=== PATIENT | female | born 1935 | race Caucasian/White ===

== ENCOUNTER 2016-08-06 11:48 | Inpatient (IN) | payer OTHER ==
[~2016-08-06] VITALS: Ht 162.6 cm; Wt 82.1 kg
[2016-08-06] MEDS ORDERED: VITAMIN D2000 UNI1 PO (12:09)
[2016-08-06] MEDS ORDERED: LEVOTHYROXINE50 MCG PO (12:09)
[2016-08-06 12:43] LABS: HEMATOCRIT 39.3 % (36.0-46.0); MCH 31.3 PG (29.0-34.0); MCHC 33.1 G/DL (30.0-36.0); MCV 94.7 FL (83-99); MEAN PLAT.VOLUME 12.4 uM^3 (9.5-12.4); PLATELET COUNT 167 K/uL (156-360); RBC DIS.WIDTH-CV 13.4 % (11.8-14.6); RBC DIS.WIDTH-SD 46.4 % (39-53); RED BLOOD COUNT 4.15 M/uL (3.80-5.20); WHITE BLOOD COUNT 7.9 K/uL (4.1-10.2)
[2016-08-06 12:56] LABS: PROTHROMBIN TIME 9.9 (9.2-11.2); PTT 30.1 (25-32)
[2016-08-06 13:00] LABS: TROP-I INTERPRETATION NEGATIVE; TROPONIN-I 0.02 ng/mL (0.0-0.30)
[2016-08-06] MEDS ORDERED: MUCINEX600 MG PO (13:11)
[2016-08-06] MEDS ORDERED: ADVIL COLD &1 TABLET PO (13:12)
[2016-08-06 13:14] LABS: ALKALINE PHOSPHATASE 70 IU/L (3-129); ANION GAP 11 MEQ/L (2-14); CHLORIDE 106 MEQ/L (99-109); GFR ESTIMATE (CALCULATED) > 59 mL/min/; GLUCOSE 123 mg/dL (70-99); SAMPLE HEMOLYSIS CHECK 0; SAMPLE ICTERIC CHECK 0; SAMPLE LIPEMIA CHECK 0; SODIUM 143 MEQ/L (136-147); TOTAL BILIRUBIN 0.6 MG/DL (0.0-1.0); UREA NITROGEN (BUN) 18 mg/dL (9-23)
[2016-08-06 15:01] VITALS: BP 153/79
[2016-08-06 15:39] LABS: ADD MIUA? YES; BILIRUBIN NEGATIVE; BLOOD SMALL; COLOR COLORLESS ((YELLOW)); GLUCOSE (STRIP) NEGATIVE; KETONES 5; LEUKOCYTES NEGATIVE; NITRITE NEGATIVE; PROTEIN (STRIP) 30; SPECIFIC GRAVITY 1.009 (1.000-1.030); UROBILINOGEN 0.2 MG/DL (0.2-1.0)
[2016-08-06 15:57] LABS: BACTERIA NONE SEEN /HPF; EPITHELIAL CELLS RARE /HPF; MUCUS NONE SEEN /LPF; UCUL ADDED? NO; WHITE BLOOD CELLS 0-5 /HPF (0-5)
[2016-08-06 16:14] LABS: POINT-OF-CARE METER ID UU13113698
[2016-08-06 19:09] VITALS: BP 168/74
[2016-08-06 19:58] LABS: TROP-I INTERPRETATION NEGATIVE; TROPONIN-I 0.06 ng/mL (0.0-0.30)
[2016-08-06 20:16] LABS: Estimated Average Glucose 140 mg/dL (70-123); HEMOGLOBIN A1c (GLYCOHEMOGLOB) 6.5 % HGB (Below 5.7)
[2016-08-06 23:25] VITALS: BP 193/83
[2016-08-07 01:14] LABS: TROP-I INTERPRETATION NEGATIVE; TROPONIN-I 0.07 ng/mL (0.0-0.30)
[2016-08-07 03:58] VITALS: BP 197/84
[2016-08-07 06:59] LABS: HEMATOCRIT 38.6 % (36.0-46.0); MCH 29.3 PG (29.0-34.0); MCHC 31.1 G/DL (30.0-36.0); MCV 94.4 FL (83-99); MEAN PLAT.VOLUME 11.3 uM^3 (9.5-12.4); PLATELET COUNT 161 K/uL (156-360); RBC DIS.WIDTH-CV 13.5 % (11.8-14.6); RBC DIS.WIDTH-SD 46.8 % (39-53); RED BLOOD COUNT 4.09 M/uL (3.80-5.20); WHITE BLOOD COUNT 7.2 K/uL (4.1-10.2)
[2016-08-07 07:29] LABS: ALKALINE PHOSPHATASE 62 IU/L (3-129); ANION GAP 6 MEQ/L (2-14); CHLORIDE 107 MEQ/L (99-109); GFR ESTIMATE (CALCULATED) > 59 mL/min/; GLUCOSE 128 mg/dL (70-99); HDL CHOLESTEROL 43 MG/DL (Desirable>=50); LDL CHOLESTEROL 136 mg/dL (Desirable<100); NON-HDL CHOLESTEROL 172 mg/dL (Desirable<160); POTASSIUM 3.8 MEQ/L (3.7-5.4); SAMPLE HEMOLYSIS CHECK 0; SAMPLE ICTERIC CHECK 0; SAMPLE LIPEMIA CHECK 0; SODIUM 142 MEQ/L (136-147); TOTAL CHOLESTEROL 215 mg/dL (Desirable<200); TRIGLYCERIDES 180 MG/DL (Normal: <150); UREA NITROGEN (BUN) 18 mg/dL (9-23)
[2016-08-07 07:32] LABS: TOTAL BILIRUBIN 0.9 MG/DL (0.0-1.0)
[2016-08-07 07:48] LABS: POINT-OF-CARE METER ID UU14174216
[2016-08-07 08:10] VITALS: BP 210/78
[2016-08-07 10:14] VITALS: BP 182/74
[2016-08-07 11:09] LABS: POINT-OF-CARE METER ID UU14174216
[2016-08-07 11:15] VITALS: BP 164/78
[2016-08-07] MEDS ORDERED: XARELTO20 MG PO (14:27)
[2016-08-07] MEDS ORDERED: LOSARTAN POTASS50 MG PO (14:27)
== END 2016-08-07 20:57 | disposition home or self-care (01) | DRG 309 ==
LOC: EME 11:48 → EDOF 13:21 → 4EAST 14:45
PROVIDERS: Internal Medicine; Physician Assistant
DX: I48.0 Paroxysmal atrial fibrillation (principal); I16.1 Hypertensive emergency; E11.9 Type 2 diabetes mellitus without complications; E03.9 Hypothyroidism, unspecified; E66.9 Obesity, unspecified; Z68.31 Body mass index [BMI] 31.0-31.9, adult; I27.2 Other secondary pulmonary hypertension
CPT/HCPCS: 71020; 80053; 80061; 81003; 82948; 83036; 84443; 84481; 84484; 85027; 85610; 85730; 93005; 93306; 99281; 99285; J1160; J1650; J1815

== ENCOUNTER 2017-05-09 14:18 | Inpatient (IN) | payer OTHER ==
[~2017-05-09] VITALS: Ht 162.6 cm; Wt 91.7 kg
[~2017-05-09 14:18] MED LIST: ADVIL COLD &1 TABLET PO; LEVOTHYROXINE50 MCG PO; LOSARTAN POTASS50 MG PO; MUCINEX600 MG PO; VITAMIN D2000 UNI1 PO; XARELTO20 MG PO
[2017-05-09 15:11] LABS: HEMATOCRIT 35.8 % (36.0-46.0); MCH 28.9 PG (29.0-34.0); MCHC 31.3 G/DL (30.0-36.0); MCV 92.3 FL (83-99); MEAN PLAT.VOLUME 11.7 uM^3 (9.5-12.4); PLATELET COUNT 203 K/uL (156-360); RBC DIS.WIDTH-CV 14.1 % (11.8-14.6); RBC DIS.WIDTH-SD 47.7 % (39-53); RED BLOOD COUNT 3.88 M/uL (3.80-5.20); WHITE BLOOD COUNT 10.6 K/uL (4.1-10.2)
[2017-05-09 15:19] LABS: CHLORIDE 107 mEq/L (99-109); POTASSIUM 3.8 mEq/L (3.7-5.4); SODIUM 144 mEq/L (136-147)
[2017-05-09 15:21] LABS: GLUCOSE 177 mg/dL (70-99)
[2017-05-09 15:23] LABS: ANION GAP 12 MEQ/L (2-14); TOTAL BILIRUBIN 0.9 mg/dL (0.0-1.0)
[2017-05-09 15:25] LABS: ALKALINE PHOSPHATASE 82 IU/L (3-129); GFR ESTIMATE (CALCULATED) 33 mL/min/
[2017-05-09 15:26] LABS: UREA NITROGEN (BUN) 28 mg/dL (9-23)
[2017-05-09 15:34] LABS: TROP-I INTERPRETATION NEGATIVE; TROPONIN-I 0.01 ng/mL (0.0-0.30)
[2017-05-09] MEDS ORDERED: FUROSEMIDE20 MG PO (16:12)
[2017-05-09] MEDS ORDERED: ATORVASTATIN CA20 MG PO (16:12)
[2017-05-09] MEDS ORDERED: ADVIL200 MG PO (16:12)
[2017-05-09] MEDS ORDERED: AMARYL1 MG PO (16:12)
[2017-05-09] MEDS ORDERED: CARDIZEM CD,CA120 MG PO (16:12)
[2017-05-09] MEDS ORDERED: AMLODIPINE BESY10 MG PO (16:12)
[2017-05-09] MEDS ORDERED: ATENOLOL50 MG PO (16:13)
[2017-05-09 21:57] VITALS: BP 127/60
[2017-05-09 22:17] LABS: TROP-I INTERPRETATION NEGATIVE; TROPONIN-I < 0.01 ng/mL (0.0-0.30)
[2017-05-09 23:09] VITALS: BP 138/62
[2017-05-10 04:19] LABS: HEMATOCRIT 31.1 % (36.0-46.0); MCH 28.7 PG (29.0-34.0); MCHC 31.5 G/DL (30.0-36.0); MCV 91.2 FL (83-99); MEAN PLAT.VOLUME 11.1 uM^3 (9.5-12.4); PLATELET COUNT 167 K/uL (156-360); RBC DIS.WIDTH-CV 14.3 % (11.8-14.6); RBC DIS.WIDTH-SD 47.8 % (39-53); RED BLOOD COUNT 3.41 M/uL (3.80-5.20); WHITE BLOOD COUNT 8.8 K/uL (4.1-10.2)
[2017-05-10 04:30] LABS: CHLORIDE 110 mEq/L (99-109); POTASSIUM 3.5 mEq/L (3.7-5.4); SODIUM 143 mEq/L (136-147)
[2017-05-10 04:31] LABS: GLUCOSE 144 mg/dL (70-99)
[2017-05-10 04:33] LABS: ANION GAP 9 MEQ/L (2-14)
[2017-05-10 04:35] LABS: GFR ESTIMATE (CALCULATED) 39 mL/min/
[2017-05-10 04:36] LABS: UREA NITROGEN (BUN) 29 mg/dL (9-23)
[2017-05-10 04:46] LABS: TROP-I INTERPRETATION NEGATIVE; TROPONIN-I < 0.01 ng/mL (0.0-0.30)
[2017-05-10 05:27] VITALS: BP 116/59
[2017-05-10 09:32] LABS: INTER. NORMALIZED RATIO 1.9; PROTHROMBIN TIME 21.4 SEC (10.2-12.9)
[2017-05-10 09:35] LABS: PTT 32.1 SEC (25-37)
[2017-05-10 10:11] VITALS: BP 115/69
[2017-05-10 12:26] VITALS: BP 122/65
[2017-05-10 15:40] VITALS: BP 137/58
[2017-05-10 17:53] LABS: TYPE OF FLUID PLEURAL
[2017-05-10 18:24] LABS: BODY FLUID LDH 62 IU/L
[2017-05-10 18:36] LABS: BODY FLUID PROTEIN < 3.0 G/DL
[2017-05-10 18:45] LABS: BODY FLUID EOSINOPHILS 0 % (0-25); BODY FLUID RBC'S 1000 /MM^3 (0-100); BODY FLUID WBC'S 266 /MM^3 (0-500); MONONUCLEAR WBC'S 86 %; POLYNUCLEAR WBC'S 14 % (0-25)
[2017-05-10 19:52] VITALS: BP 122/66
[2017-05-10 23:32] VITALS: BP 121/65
[2017-05-11 03:38] VITALS: BP 136/74
[2017-05-11 06:22] LABS: ANION GAP 10 MEQ/L (2-14); CHLORIDE 107 MEQ/L (99-109); GFR ESTIMATE (CALCULATED) 33 mL/min/; GLUCOSE 153 mg/dL (70-99); POTASSIUM 3.9 MEQ/L (3.7-5.4); SAMPLE HEMOLYSIS CHECK 0; SAMPLE ICTERIC CHECK 0; SAMPLE LIPEMIA CHECK 0; SODIUM 144 MEQ/L (136-147); UREA NITROGEN (BUN) 42 mg/dL (9-23)
[2017-05-11 08:20] VITALS: BP 135/81
[2017-05-11 10:29] LABS: MCH 28.3 PG (29.0-34.0); MCHC 30.9 G/DL (30.0-36.0); MCV 91.4 FL (83-99); MEAN PLAT.VOLUME 11.5 uM^3 (9.5-12.4); PLATELET COUNT 194 K/uL (156-360); RBC DIS.WIDTH-CV 14.4 % (11.8-14.6); WHITE BLOOD COUNT 14.7 K/uL (4.1-10.2)
[2017-05-11 11:37] VITALS: BP 119/64
[2017-05-11 11:58] LABS: POINT-OF-CARE METER ID UU14174216
[2017-05-11 16:32] LABS: POINT-OF-CARE METER ID UU14174216
[2017-05-11 16:50] VITALS: BP 133/63
[2017-05-11 19:14] VITALS: BP 133/64
[2017-05-11 21:19] LABS: POINT-OF-CARE METER ID UU14174216
[2017-05-11 23:54] VITALS: BP 132/71
[2017-05-12 04:21] VITALS: BP 118/75
[2017-05-12 05:45] LABS: EOSINOPHIL (%) 0 % (0-5); HEMATOCRIT 29.5 % (36.0-46.0); IMMATURE GRANULOCYTE (%) 0.5 % (0.0-0.7); IMMATURE GRANULOCYTE COUNT 0.1 K/uL; LYMPHOCYTE COUNT 0.5 K/uL (1.0-2.8); MCH 28.4 PG (29.0-34.0); MCHC 31.5 G/DL (30.0-36.0); MCV 90.2 FL (83-99); MEAN PLAT.VOLUME 11.5 uM^3 (9.5-12.4); MONOCYTE (%) 5.5 % (3-12); MONOCYTE COUNT 0.7 K/uL (0-0.8); NEUTROPHIL (%) 89.8 % (45-76); PLATELET COUNT 169 K/uL (156-360); RBC DIS.WIDTH-CV 14.3 % (11.8-14.6); RBC DIS.WIDTH-SD 47.4 % (39-53); RED BLOOD COUNT 3.27 M/uL (3.80-5.20); WHITE BLOOD COUNT 13.3 K/uL (4.1-10.2)
[2017-05-12 06:11] LABS: ANION GAP 11 MEQ/L (2-14); CHLORIDE 105 MEQ/L (99-109); GFR ESTIMATE (CALCULATED) 29 mL/min/; GLUCOSE 151 mg/dL (70-99); SAMPLE HEMOLYSIS CHECK 0; SAMPLE ICTERIC CHECK 0; SAMPLE LIPEMIA CHECK 0; SODIUM 142 MEQ/L (136-147); UREA NITROGEN (BUN) 49 mg/dL (9-23)
[2017-05-12 08:07] LABS: POINT-OF-CARE METER ID UU13113698
[2017-05-12 09:00] VITALS: BP 131/71
[2017-05-12 12:14] LABS: POINT-OF-CARE METER ID UU13113819; POINT-OF-CARE USER ID ADMSLT55
[2017-05-12 13:11] VITALS: BP 142/63
[2017-05-12 16:00] VITALS: BP 121/58
[2017-05-12 17:02] LABS: POINT-OF-CARE METER ID UU13113781
[2017-05-12 19:24] VITALS: BP 134/74
[2017-05-12 21:48] LABS: POINT-OF-CARE METER ID UU14314088
[2017-05-13] VITALS (7 sets, daily range): BP systolic 120–177; BP diastolic 58–91
[2017-05-13 04:59] LABS: CHLORIDE 105 mEq/L (99-109); EOSINOPHIL (%) 0 % (0-5); HEMATOCRIT 30.6 % (36.0-46.0); IMMATURE GRANULOCYTE (%) 0.6 % (0.0-0.7); IMMATURE GRANULOCYTE COUNT 0.1 K/uL; INSTRUMENT ABS NEUTROPHIL CT 10.7 K/uL; LYMPHOCYTE COUNT 0.6 K/uL (1.0-2.8); MCH 28.2 PG (29.0-34.0); MCHC 31.4 G/DL (30.0-36.0); MCV 89.7 FL (83-99); MEAN PLAT.VOLUME 11.8 uM^3 (9.5-12.4); MONOCYTE (%) 8.5 % (3-12); MONOCYTE COUNT 1.1 K/uL (0-0.8); NEUTROPHIL (%) 85.9 % (45-76); NEUTROPHIL COUNT 10.7 K/uL (1.8-6.4); PLATELET COUNT 161 K/uL (156-360); POTASSIUM 3.7 mEq/L (3.7-5.4); RBC DIS.WIDTH-CV 14.2 % (11.8-14.6); RBC DIS.WIDTH-SD 46.5 % (39-53); RED BLOOD COUNT 3.41 M/uL (3.80-5.20); SODIUM 140 mEq/L (136-147); WHITE BLOOD COUNT 12.4 K/uL (4.1-10.2)
[2017-05-13 05:02] LABS: ANION GAP 9 MEQ/L (2-14)
[2017-05-13 05:04] LABS: GFR ESTIMATE (CALCULATED) 31 mL/min/
[2017-05-13 05:05] LABS: UREA NITROGEN (BUN) 50 mg/dL (9-23)
[2017-05-13 05:07] LABS: GLUCOSE 102 mg/dL (70-99)
[2017-05-13 08:13] LABS: POINT-OF-CARE METER ID UU14314088
[2017-05-13 11:24] LABS: POINT-OF-CARE METER ID UU14174216
[2017-05-13 16:41] LABS: POINT-OF-CARE METER ID UU14174216
[2017-05-13 20:49] LABS: POINT-OF-CARE METER ID UU14314088
[2017-05-14] VITALS (9 sets, daily range): BP systolic 110–142; BP diastolic 56–71
[2017-05-14 05:30] LABS: EOSINOPHIL (%) 0 % (0-5); HEMATOCRIT 30.6 % (36.0-46.0); IMMATURE GRANULOCYTE (%) 0.6 % (0.0-0.7); IMMATURE GRANULOCYTE COUNT 0.1 K/uL; INSTRUMENT ABS NEUTROPHIL CT 9.4 K/uL; LYMPHOCYTE COUNT 0.6 K/uL (1.0-2.8); MCH 28.1 PG (29.0-34.0); MCHC 31.4 G/DL (30.0-36.0); MCV 89.5 FL (83-99); MEAN PLAT.VOLUME 11.6 uM^3 (9.5-12.4); MONOCYTE (%) 9.9 % (3-12); MONOCYTE COUNT 1.1 K/uL (0-0.8); NEUTROPHIL (%) 83.7 % (45-76); NEUTROPHIL COUNT 9.4 K/uL (1.8-6.4); PLATELET COUNT 160 K/uL (156-360); RBC DIS.WIDTH-CV 14.2 % (11.8-14.6); RBC DIS.WIDTH-SD 46.3 % (39-53); RED BLOOD COUNT 3.42 M/uL (3.80-5.20); WHITE BLOOD COUNT 11.3 K/uL (4.1-10.2)
[2017-05-14 05:55] LABS: ANION GAP 6 MEQ/L (2-14); CHLORIDE 106 MEQ/L (99-109); GFR ESTIMATE (CALCULATED) 42 mL/min/; GLUCOSE 71 mg/dL (70-99); POTASSIUM 3.8 MEQ/L (3.7-5.4); SAMPLE HEMOLYSIS CHECK 0; SAMPLE ICTERIC CHECK 0; SAMPLE LIPEMIA CHECK 0; SODIUM 143 MEQ/L (136-147); UREA NITROGEN (BUN) 38 mg/dL (9-23)
[2017-05-14 07:44] LABS: POINT-OF-CARE METER ID UU14174216; POINT-OF-CARE USER ID NUTSLF44
[2017-05-14 11:36] LABS: POINT-OF-CARE METER ID UU14174216; POINT-OF-CARE USER ID NUTSLF44
[2017-05-14 15:17] LABS: POC NON-PRINT COM 1 ND
[2017-05-14 15:58] LABS: MAGNESIUM 2.4 mg/dl (1.3-2.7)
[2017-05-14 16:42] LABS: POINT-OF-CARE METER ID UU14174216; POINT-OF-CARE USER ID NUTSLF44
[2017-05-14 20:42] LABS: POINT-OF-CARE METER ID UU13113698
[2017-05-15 04:00] VITALS: BP 122/67
[2017-05-15 07:35] LABS: POINT-OF-CARE METER ID UU13113698
[2017-05-15 07:45] VITALS: BP 143/60
[2017-05-15 09:11] LABS: HEMATOCRIT 34.7 % (36.0-46.0); MCHC 31.1 G/DL (30.0-36.0); MCV 89.9 FL (83-99); RBC DIS.WIDTH-SD 46.4 % (39-53); RED BLOOD COUNT 3.86 M/uL (3.80-5.20)
[2017-05-15 09:29] LABS: ANION GAP 8 MEQ/L (2-14); CHLORIDE 105 MEQ/L (99-109); POTASSIUM 3.8 MEQ/L (3.7-5.4); SAMPLE HEMOLYSIS CHECK 0; SAMPLE ICTERIC CHECK 0; SAMPLE LIPEMIA CHECK 0; SODIUM 144 MEQ/L (136-147)
[2017-05-15 09:36] LABS: GFR ESTIMATE (CALCULATED) 46 mL/min/; UREA NITROGEN (BUN) 29 mg/dL (9-23)
[2017-05-15 09:37] LABS: GLUCOSE 143 mg/dL (70-99)
[2017-05-15 10:06] LABS: MEAN PLAT.VOLUME 11.7 uM^3 (9.5-12.4); PLAT.SUFFICIENCY ADEQUATE; PLATELET COUNT 164 K/uL (156-360)
[2017-05-15 11:26] VITALS: BP 128/50
[2017-05-15 11:35] LABS: POINT-OF-CARE METER ID UU13113698
[2017-05-15 16:11] VITALS: BP 138/60
[2017-05-15 16:28] LABS: POINT-OF-CARE METER ID UU14174216
[2017-05-15 19:29] VITALS: BP 112/76
[2017-05-15 20:53] LABS: POINT-OF-CARE METER ID UU14314088
[2017-05-15 23:27] VITALS: BP 122/83
[2017-05-16 03:37] VITALS: BP 132/65
[2017-05-16 08:00] VITALS: BP 132/68
[2017-05-16 08:13] LABS: POINT-OF-CARE METER ID UU13113698; POINT-OF-CARE USER ID NUTSLF44
[2017-05-16] MEDS ORDERED: FUROSEMIDE40 MG PO (08:46)
[2017-05-16] MEDS ORDERED: CORDARONE200 MG PO (08:46)
[2017-05-16] MEDS ORDERED: LOPRESSOR50 MG PO (08:46)
[2017-05-16 10:20] LABS: ANION GAP 6 MEQ/L (2-14); CHLORIDE 104 MEQ/L (99-109); GFR ESTIMATE (CALCULATED) 57 mL/min/; GLUCOSE 133 mg/dL (70-99); POTASSIUM 3.9 MEQ/L (3.7-5.4); SAMPLE HEMOLYSIS CHECK 0; SAMPLE ICTERIC CHECK 0; SAMPLE LIPEMIA CHECK 0; SODIUM 141 MEQ/L (136-147); UREA NITROGEN (BUN) 20 mg/dL (9-23)
[2017-05-16] MEDS ORDERED: ATENOLOL50 MG PO (10:55)
[2017-05-16] MEDS ORDERED: KLOR-CON 1010 ME1 PO ×2 (10:56→11:39)
== END 2017-05-16 12:00 | disposition home or self-care (01) | DRG 291 ==
LOC: EME 14:18 → EDOF 16:03 → 4EAST 16:03 → ENRESERV 16:19 → 3EAST 21:36 → ENRESERV 05-10 14:27 → 4EAST 05-10 15:35
PROVIDERS: Emergency Medicine; Hospitalist; Internal Medicine; Internal Medicine Cardiovascular Disease; Internal Medicine Pulmonary Disease; Physician Assistant
PROC: 5A2204Z Restoration of Cardiac Rhythm, Single (ICD-10-PCS; principal; 2017-05-09)
PROC: 0W993ZZ Drainage of Right Pleural Cavity, Percutaneous Approach (ICD-10-PCS; principal; 2017-05-09)
DX: I13.0 Hypertensive heart and chronic kidney disease with heart failure and stage 1 through stage 4 chronic kidney disease, or unspecified chronic kidney disease (principal); I50.9 Heart failure, unspecified; I48.0 Paroxysmal atrial fibrillation; J98.11 Atelectasis; J96.01 Acute respiratory failure with hypoxia; J18.9 Pneumonia, unspecified organism; N18.9 Chronic kidney disease, unspecified; E11.22 Type 2 diabetes mellitus with diabetic chronic kidney disease; N17.9 Acute kidney failure, unspecified; E03.9 Hypothyroidism, unspecified; Y95 Nosocomial condition; D63.8 Anemia in other chronic diseases classified elsewhere; E66.9 Obesity, unspecified; Z68.35 Body mass index [BMI] 35.0-35.9, adult; Z82.49 Family history of ischemic heart disease and other diseases of the circulatory system; Z79.01 Long term (current) use of anticoagulants; I25.2 Old myocardial infarction; E87.6 Hypokalemia; I27.20 Pulmonary hypertension, unspecified; K43.9 Ventral hernia without obstruction or gangrene; R91.8 Other nonspecific abnormal finding of lung field; Z88.0 Allergy status to penicillin; I48.1 Persistent atrial fibrillation
CPT/HCPCS: 71010; 71020; 71250; 74176; 76942; 80048; 80048 91; 80053; 82272; 82945; 82948; 83615 91; 83735; 83880; 84100; 84157; 84443; 84484; 85025; 85027; 85610; 85730; 87040; 87070; 87075; 87205; 88108; 88305; 89051; 93005; 93306; 94640; 94640 76; 94799; 97530 GO; 97530 GP; 99202; 99281; 99285; J0282; J1160; J1815; J1940; J1956; J7512